=== PATIENT | male | born 1955 | race African-American/Black ===

== ENCOUNTER 2016-11-02 12:49 | Inpatient (IN) | payer MEDICARE ==
[~2016-11-02 12:49] MED LIST: ROCURONIUM BROMIDE INJ 50 MG/5 ML VIAL IV ONE
[2016-11-02] MEDS ORDERED: CEFTRIAXONE 1 GM/D5W RTU 1 GM/50 ML RTUPB IV ONE (15:00)
--- NOTE | 2016-11-02 15:08 | RADIOLOGY REPORT (SQ) ---
EXAM DESCRIPTION: CT ABD/PELVIS NO ORAL OR IV COMPLETED DATE/TIME: 11/02/2016 2:37 pm REASON FOR STUDY: ABDOMINAL PAIN COMPARISON: AP chest 04/21/2009, 11/02/2016 TECHNIQUE: CT scan of the abdomen and pelvis performed without intravenous or oral contrast. Images reviewed with lung, soft tissue, and bone windows. Reconstructed coronal and sagittal MPR images revi ewed. All images stored on PACS. All CT scanners at this facility use dose modulation, iterative reconstruction, and/or weight based d osing when appropriate to reduce radiation dose to as low as reasonably achievable (ALARA). [facility]: Dose Right [facility]: CareDose [facility]: Dose Right [facility]: Teradose 4D [facility]: [employer] RADIATION DOSE: Up-to-date CT equipment and radiation dose reduction techniques were employed. CTDIv ol: 31.7 mGy. DLP: 1960 mGy-cm.mGy. LIMITATIONS: None. FINDINGS: LOWER CHEST: On image 7 in the left posterior costophrenic sulcus, a 3.3 cm pleural-based ill-defined nodule with air bronchograms is present, which may represent round atelectasis. There is a 3.6 cm area of nodule versus consolidation in the right posterior costophrenic sulcus on A xial image 12. There is a 1 cm focus of airspace disease in the periphery of the right middle lobe axial image 2. No pleural effusions at the lung bases. Moderate cardiomegaly. Coronary artery calcification. Smal l hiatal hernia. NON-CONTRASTED LIVER, SPLEEN, ADRENALS: Liver, spleen, right adrenal gland are unremarkable. A 2.8 c m fatty density left adrenal nodule is present, benign. This best shown on axial image 32 and leung l image 73. PANCREAS: No masses. No peripancreatic inflammatory changes. GALLBLADDER: No identified stones by CT criteria. No inflammatory changes to suggest cholecystitis. RIGHT KIDNEY AND URETER: No suspicious masses. Assessment limited by lack of IV contrast. No signif icant calcifications. No hydronephrosis or hydroureter. LEFT KIDNEY AND URETER: No suspicious masses. Assessment limited by lack of IV contrast. No signifi cant calcifications. No hydronephrosis or hydroureter. AORTA AND RETROPERITONEUM: No aneurysm. No retroperitoneal masses or adenopathy. BOWEL AND PERITONEAL CAVITY: No obvious masses or inflammatory changes. No free fluid. APPENDIX: Normal. PELVIS, BLADDER, AND ABDOMINAL WALL:No abnormal masses. No free fluid. Bladder normal. Small fat con taining umbilical hernia. BONES: Diffuse degenerative disc changes most pronounced in the lower lumbar spine OTHER: No other significant finding. IMPRESSION: No CT findings to explain history of abdominal pain Incidental finding of a benign left adrenal adenoma Incidental finding of bilateral lower lobe pleural-based areas consolidation most likely rounded atel ectasis. Malignancy could not entirely be excluded. Please consider a non contrasted CT chest for f urther evaluation TECHNICAL DOCUMENTATION: JOB ID: [id number] Quality ID # [id number]: Final reports with documentation of one or more dose reduction techniques (e.g., Au tomated exposure control, adjustment of the mA and/or kV according to patient size, use of iterative reconstruction technique) 2010 [employer]- All Rights Reserved
--- NOTE | 2016-11-02 15:10 | RADIOLOGY REPORT (SQ) ---
EXAM DESCRIPTION: CHEST SINGLE VIEW COMPLETED DATE/TIME: 11/02/2016 2:47 pm REASON FOR STUDY: rule out pain COMPARISON: 08/16/2012 EXAM PARAMETERS: NUMBER OF VIEWS: One view. TECHNIQUE: Single frontal radiographic view of the chest acquired. RADIATION DOSE: NA LIMITATIONS: Obese patient, low lung volumes with portable technique. FINDINGS: LUNGS AND PLEURA: Low lung volumes, portable technique. There is right and left retrocard iac airspace disease, new compared to 2013. This could be chronic atelectasis. Pneumonia or pulmona ry nodule could not entirely be excluded. Consider non contrasted chest CT for followup. MEDIASTINUM AND HILAR STRUCTURES: No masses. Contour normal. HEART AND VASCULAR STRUCTURES: Heart normal in size. Normal vasculature. BONES: No acute findings. HARDWARE: None in the chest. OTHER: No other significant finding. IMPRESSION: Bibasilar airspace disease TECHNICAL DOCUMENTATION: JOB ID: [id number]
[2016-11-02 15:46] LABS: HEMATOCRIT 30.1 % (37.9-51.0); HEMOGLOBIN 9.5 g/dL (13.5-17.0); HGB HCT DIFFERENCE -1.6; MEAN CORPUSCULAR HEMOGLOBIN 30.7 pg (27.0-33.4); MEAN CORPUSCULAR HGB CONC 31.7 g/dL (32.0-36.0); MEAN CORPUSCULAR VOLUME 97 fl (80-97); RED BLOOD COUNT 3.11 10^6/uL (4.35-5.55); RED CELL DISTRIBUTION WIDTH 13.9 % (11.5-14.0); WHITE BLOOD COUNT 19.9 10^3/uL (4.0-10.5)
[2016-11-02 15:57] LABS: ALANINE AMINOTRANSFERASE 49 U/L (21-72); ALBUMIN 3.5 g/dL (3.5-5.0); ALKALINE PHOSPHATASE 74 U/L (38-126); ASPARTATE AMINO TRANSFERASE 55 U/L (17-59); BILIRUBIN,DIRECT 0.6 mg/dL (0.0-0.4); BILIRUBIN,TOTAL 0.6 mg/dL (0.2-1.3); BLOOD UREA NITROGEN 76 mg/dL (7-20); CALCIUM 7.7 mg/dL (8.4-10.2); CARBON DIOXIDE 16 mmol/L (22-30); CHLORIDE 93 mmol/L (98-107); CREATININE RESULT 10.87 mg/dL (0.52-1.25)
[2016-11-02 16:07] LABS: BASOPHILS % (MANUAL) 0 % (0-2); EOSINOPHILS % (MANUAL) 0 % (0-6); LYMPHOCYTES % (MANUAL) 4 % (13-45); SODIUM 129.8 mmol/L (137-145); TOTAL CELLS COUNTED 100
[2016-11-02 16:08] LABS: ANION GAP 21 (5-19)
[2016-11-02 16:10] LABS: TOXIC GRANULATION SLIGHT
[2016-11-02 16:11] LABS: GLUCOSE 722 mg/dL (75-110)
[2016-11-02 16:12] LABS: POTASSIUM 6.3 mmol/L (3.6-5.0)
[2016-11-02] MEDS ORDERED: INSULIN LISPRO 100 UNIT/ML 3 ML VIAL ONE (16:48)
[2016-11-02] MEDS ORDERED: LIDOCAINE 1% INJ-PF (10 MG/ML) 30 ML SDV ONE (16:49)
[2016-11-02] MEDS ORDERED: INSULIN LISPRO 100 UNIT/ML 3 ML VIAL SUBCUT ONE (17:00)
[2016-11-02] MEDS: SODIUM POLYSTYRENE SULFONATE 15 GM/60 ML PO SCH ×2 (18:34→21:18)
--- NOTE | 2016-11-02 18:34 | RADIOLOGY REPORT (SQ) ---
EXAM DESCRIPTION: CHEST SINGLE VIEW COMPLETED DATE/TIME: 11/02/2016 6:20 pm REASON FOR STUDY: CHECK PLACEMENT OF RIGHT IJ COMPARISON: 11/02/2016 EXAM PARAMETERS: NUMBER OF VIEWS: One view. TECHNIQUE: Single frontal radiographic view of the chest acquired. RADIATION DOSE: NA LIMITATIONS: None. FINDINGS: LUNGS AND PLEURA: There is ill-defined opacification in the left base. The left hemidiaph ragm is indistinct. There is no pneumothorax. MEDIASTINUM AND HILAR STRUCTURES: No masses. Contour normal. HEART AND VASCULAR STRUCTURES: Heart normal in size. Normal vasculature. BONES: No acute findings. HARDWARE: A right internal jugular catheter has its tip in the superior vena cava. OTHER: No other significant finding. IMPRESSION: 1. Cannot rule out left lower lobe pneumonia. 2. Catheter placement as described. TECHNICAL DOCUMENTATION: JOB ID: [id number]
--- NOTE | 2016-11-02 18:43 | RADIOLOGY REPORT (SQ) ---
EXAM DESCRIPTION: CT CHEST WITHOUT COMPLETED DATE/TIME: 11/02/2016 6:23 pm REASON FOR STUDY: pneumonia COMPARISON: None. TECHNIQUE: CT scan performed of the chest without intravenous contrast. Images reviewed with lung, soft tissue and bone windows. Reconstructed coronal and sagittal MPR images reviewed. All images st ored on PACS. All CT scanners at this facility use dose modulation, iterative reconstruction, and/or weight based d osing when appropriate to reduce radiation dose to as low as reasonably achievable (ALARA). [facility]: Dose Right [facility]: CareDose [facility]: Dose Right [facility]: Teradose 4D [facility]: [employer] RADIATION DOSE: 21.14 mGy. LIMITATIONS: No technical limitations. FINDINGS: LUNGS AND PLEURA: There is a 30 x 20 mm opacity in the right upper lobe anteriorly. This is best seen on image 16 of the axial series. This abuts the pleural surface on image 15. There is a 9 mm nodular density seen peripherally the right lung on image 27. There are bilateral focal areas of opacity in the medial aspect of each lung base. There is mild subsegmental atelectasis in each lo wer lobe. HILAR AND MEDIASTINAL STRUCTURES: No mediastinal or hilar masses or adenopathy is seen. HEART AND VASCULAR STRUCTURES: No aneurysm. No pericardial effusion. UPPER ABDOMEN: There is a 33 mm left adrenal nodule. THYROID AND OTHER SOFT TISSUES: No masses. No adenopathy. BONES: No significant finding. HARDWARE: None in the chest. OTHER: No other significant findings. IMPRESSION: 1. There is opacity in the right upper lobe. This could represent a localized area of consolidation. A nodule cannot be ruled out. 2. There are opacities in the medial aspect of each lower lobe suggestive of areas of consolidation. 3. There is a 33 mm left adrenal nodule. 4. There is peripheral 9 mm nodule in the right lung on image 27. TECHNICAL DOCUMENTATION: JOB ID: [id number] Quality ID # [id number]: Final reports with documentation of one or more dose reduction techniques (e.g., Au tomated exposure control, adjustment of the mA and/or kV according to patient size, use of iterative reconstruction technique) 2010 [employer]- All Rights Reserved
--- NOTE | 2016-11-02 19:29 | OPERATIVE REPORT E ---
Operative Report NAME: SCARLET ALMONTE : 1955 AGE: 61Y DATE OF SURGERY: ROOM: 324 PREOPERATIVE DIAGNOSIS: POOR VEINS FOR IV ACCESS AND PATIENT WITH SEPSIS AND HEMODIALYSIS PATIENT. POSTOPERATIVE DIAGNOSIS: POOR VEINS FOR IV ACCESS AND PATIENT WITH SEPSIS AND HEMODIALYSIS PATIENT. OPERATION: Placement of right internal jugular vein catheter under ultrasound guidance. SURGEON: LUIS ANGEL MCKEON M.D. ANESTHESIA: Local. INDICATION: This is a 61-year-old male who was admitted from the medical office for sepsis. He needed IV access and unable to put in peripheral lines because of poor veins in his arms. PROCEDURE: The patient was placed in the Trendelenburg position. The right neck was then prepped and draped in the usual sterile fashion. With the help of the ultrasound, the right internal jugular vein was identified. It was noted to be a good size, about almost 2 cm in diameter. Local anesthesia was then infiltrated and a needle was advanced through the skin into the internal jugular vein. The guidewire was then passed through the needle towards the area of the superior vena cava. The needle was removed and the puncture site enlarged with an 11-blade and with a dilator. Next, a triple lumen catheter was then inserted through the guidewire towards the superior vena cava to a distance of about 16 cm. The catheter was anchored to the skin with 3-0 silk. All the 3 ports spurted blood easily and infused saline easily. A bypass was then placed at the insertion site around the catheter and a transparent sterile dressing placed over the Biopatch and catheter. A chest x-ray will be taken post catheter placement. He is supposed to go to CAT scan and they can do the chest x-ray in the x-ray department at the same time. The patient tolerated the procedure well. DICTATING PHYSICIAN: LUIS ANGEL MCKEON M.D. [id number] PHY#: [id number] ID: [id number] JOB#: [id number] ACCT: [id number] cc:LUIS ANGEL MCKEON M.D. > MTDD
[2016-11-02] MEDS ORDERED: CALCIUM ACETATE 667 MG CAPSULE PO SCH (19:30)
[2016-11-02] MEDS ORDERED: (PENDING PHARMACY ID) (Vit B Cmplx 3/Fa/Vit C/Biotin [Rena-Vite Rx Tablet] 1 TAB) PO SCH (19:30)
[2016-11-02] MEDS: HYDROCODONE/ACETAMINOPHEN 5-325 MG TABLET PO PRN (20:05)
[2016-11-02] MEDS ORDERED: MAGNESIUM OXIDE 400 MG TABLET PO ONE (20:15)
[2016-11-02] MEDS ORDERED: ASPIRIN 81 MG TABLET, CHEWABLE PO ONE (20:30)
--- NOTE | 2016-11-02 20:30 | PDOC H&P ---
History of Present Illness Admission Date/PCP: 11/02/16 19:22 ALEA MCGRATH MD History of Present Illness: SCARLET ALMONTE JR is a 61 year old male, he was end-stage renal disease due to diabetic nephropathy on maintenance hemodialysis he came to the office this morning for evaluation of the temperature 102 upper abdominal pain, he was admitted directly from the office into the hospital because of concern for sepsis, the hemogram revealed WBC of 19,000 with left shift ,CT Chest without contrast was done, showed 30 by 20 mm opacity in the right upper lobe. There are bilateral focal opacity in the medial aspect of each lung base, CT scan of the abdomen was done because of abdominal pain, the CAT scan did not show any acute pathology. 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12 , Vascular Surgery - fistula Denies: Appendectomy, Cholecystectomy, Coronary Artery Bypass Graft, Gastric Bypass Surgery, Herniorrhaphy, Pacemaker, Tonsillectomy Social History Smoking Status: Never Smoker Frequency of Alcohol Use: None Hx Recreational Drug Use: No Drugs: None Hx Prescription Drug Abuse: No Family History Parental Family History Reviewed: Yes Children Family History Reviewed: Yes Sibling(s) Family History Reviewed.: Yes Medication/Allergy Home Medications: Aspirin [Aspirin 81 mg Chewable Tablet] 81 mg PO DAILY 11/02/16 Calcium Acetate 2,001 mg PO MEALS 11/02/16 Calcium Acetate 667 mg PO .WITH SNACKS 11/02/16 Calcium Carbonate [Tums Chewable 500 mg Tab.chew] 500 mg PO QHS 11/02/16 Clonidine HCl [Catapres 0.1 mg Tablet] 0.1 mg PO QHS 11/02/16 Furosemide [Lasix 80 mg Tablet] 80 mg PO SUTUTHSA@1000 11/02/16 Furosemide [Lasix] 40 mg PO MOWEFR@1000 11/02/16 Insulin Glargine,Hum.rec.anlog [Lantus Solostar] 18 unit SQ QHS 11/02/16 Insulin Lispro [Humalog Insulin 100 Unit/1 ml 3 ml Vial] 0 unit SUBCUT .SLD SCALE 11/02/16 Magnesium Oxide [Mag-Ox 400 mg Tablet] 400 mg PO DAILY 11/02/16 Pravastatin Sodium [Pravachol] 40 mg PO DAILY 11/02/16 Vit B Cmplx 3/FA/Vit C/Biotin [Nisha-John Rx Tablet] 1 tab PO DAILY 11/02/16 Allergies/Adverse Reactions: No Known Allergies Allergy (Unverified 10/24/10 17:46) Review of Systems Constitutional: PRESENT: chills Eyes: ABSENT: visual disturbances Ears: ABSENT: hearing changes Cardiovascular: ABSENT: chest pain, dyspnea on exertion, edema, orthropnea, palpitations Respiratory: PRESENT: cough Gastrointestinal: PRESENT: abdominal pain Genitourinary: ABSENT: dysuria, hematuria Musculoskeletal: ABSENT: joint swelling Integumentary: ABSENT: rash, wounds Neurological: ABSENT: abnormal gait, abnormal speech, confusion, dizziness, focal weakness, syncope Psychiatric: ABSENT: anxiety, depression, homidical ideation, suicidal ideation Endocrine: ABSENT: cold intolerance, heat intolerance, menstrual abnormalities, polydipsia, polyuria Hematologic/Lymphatic: ABSENT: easy bleeding, easy bruising, lymphadenopathy Physical Exam Vital Signs: Temp Pulse Resp BP Pulse Ox 98.6 F 87 24 H 152/67 H 93 11/02/16 16:01 11/02/16 19:20 11/02/16 16:01 11/02/16 16:01 11/02/16 16:01 Intake & Output 11/01/16 11/02/16 11/03/16 06:59 06:59 06:59 Intake Total 289 Output Total 0 Balance 289 Weight 149.3 kg General appearance: PRESENT: severe distress Head exam: PRESENT: atraumatic, normocephalic Eye exam: PRESENT: conjunctiva pink, EOMI, PERRLA. ABSENT: scleral icterus Ear exam: PRESENT: normal external ear exam Mouth exam: PRESENT: moist, tongue midline Neck exam: PRESENT: full ROM Cardiovascular exam: PRESENT: RRR, +S1, +S2 Vascular exam: PRESENT: normal capillary refill GI/Abdominal exam: PRESENT: normal bowel sounds, soft Rectal exam: PRESENT: deferred Extremities exam: PRESENT: right AKA, left BKA Neurological exam: PRESENT: alert Psychiatric exam: PRESENT: appropriate affect, normal mood Skin exam: PRESENT: dry, intact, warm Results Laboratory Results: 11/02/16 15:25 11/02/16 15:25 11/02/16 11/02/16 15:25 15:25 WBC 19.9 H RBC 3.11 L Hgb 9.5 L Hct 30.1 L MCV 97 MCH 30.7 MCHC 31.7 L RDW 13.9 Plt Count 191 Seg Neutrophils % Not Reportable Lymphocytes % Not Reportable Monocytes % Not Reportable Eosinophils % Not Reportable Basophils % Not Reportable Absolute Neutrophils Not Reportable Absolute Lymphocytes Not Reportable Absolute Monocytes Not Reportable Absolute Eosinophils Not Reportable Absolute Basophils Not Reportable Sodium 129.8 L Potassium 6.3 H* Chloride 93 L Carbon Dioxide 16 L Anion Gap 21 H BUN 76 H Creatinine 10.87 H Est GFR ( Amer) 6 L Est GFR (Non-Af Amer) 5 L Glucose 722 H* Calcium 7.7 L Total Bilirubin 0.6 AST 55 ALT 49 Alkaline Phosphatase 74 Total Protein 7.0 Albumin 3.5 Impressions: Abdomen/Pelvis CT 11/02/16 00:00 IMPRESSION: No CT findings to explain history of abdominal pain Incidental finding of a benign left adrenal adenoma Incidental finding of bilateral lower lobe pleural-based areas consolidation most likely rounded atelectasis. Malignancy could not entirely be excluded. Please consider a non contrasted CT chest for further evaluation Chest CT 11/02/16 00:00 IMPRESSION: 1. There is opacity in the right upper lobe. This could represent a localized area of consolidation. A nodule cannot be ruled out. 2. There are opacities in the medial aspect of each lower lobe suggestive of areas of consolidation. 3. There is a 33 mm left adrenal nodule. 4. There is peripheral 9 mm nodule in the right lung on image 27. Chest X-Ray 11/02/16 00:00 IMPRESSION: 1. Cannot rule out left lower lobe pneumonia. 2. Catheter placement as described. Assessment & Plan - Diagnosis (1) Pneumonia Qualifiers: Pneumonia type: due to unspecified organism Laterality: bilateral Lung location: unspecified part of lung Qualified Code(s): J18.9 - Pneumonia, unspecified organism Is this a current diagnosis for this admission?: YesPlan: He will be treated with IV antibiotic to cover MRSA, gram-negative, community- acquired pathogen. Vancomycin, Levaquin,ceftrizone (2) Sepsis Qualifiers: Sepsis type: sepsis due to unspecified organism Qualified Code(s): A41.9 - Sepsis, unspecified organism Is this a current diagnosis for this admission?: Yes (4) Diabetes mellitus Qualifiers: Diabetes mellitus type: type 2 Diabetes mellitus complication status: with hyperglycemia Diabetes mellitus penitentiary insulin use: with continuous churn buttermaker use Qualified Code(s): E11.65 - Type 2 diabetes mellitus with hyperglycemia; Z79.4 - intermodal truck driver (current) use of insulin Is this a current diagnosis for this admission?: YesPlan: The blood glucose is above 700 (5) Hyperkalemia Is this a current diagnosis for this admission?: YesPlan: start kayexalate
[2016-11-02] MEDS ORDERED: VANCOMYCIN HCL 1,000 MG in DEXTROSE 5%-WATER 250 ML IV ONE (21:00)
[2016-11-02] MEDS: CALCIUM CARBONATE 500 MG TAB.CHEW PO SCH (21:17)
[2016-11-02] MEDS: CLONIDINE HCL 0.1 MG TABLET PO SCH (21:17)
[2016-11-02] MEDS: ATORVASTATIN CALCIUM 10 MG TABLET PO SCH (21:17)
[2016-11-02 21:54] LABS: ANION GAP 19 (5-19); BLOOD UREA NITROGEN 80 mg/dL (7-20); CALCIUM 7.7 mg/dL (8.4-10.2); CARBON DIOXIDE 20 mmol/L (22-30); CHLORIDE 92 mmol/L (98-107); CREATININE RESULT 10.81 mg/dL (0.52-1.25); SODIUM 130.9 mmol/L (137-145)
[2016-11-02 22:12] LABS: GLUCOSE 738 mg/dL (75-110); POTASSIUM 6.2 mmol/L (3.6-5.0)
--- NOTE | 2016-11-02 22:26 | EKG REPORT ---
SEVERITY:- NORMAL ECG - SINUS RHYTHM : Confirmed by: Heather Madrid 02-Nov-2016 22:25:25
[2016-11-02] MEDS ORDERED: INSULIN REG, HUMAN 100 UNIT/ML 3 ML VIAL (PYX) IV ONE (23:30)
[2016-11-03] MEDS: INSULIN GLARGINE,HUM.REC.ANLOG 300 UNIT/3 ML INSULN.PEN SUBCUT SCH ×2 (00:01→22:44)
[2016-11-03] MEDS: LEVOFLOXACIN 250 MG/D5W RTU 250 MG/50 ML RTUPB IV SCH ×2 (00:02→22:53)
[2016-11-03] MEDS: HYDROCODONE/ACETAMINOPHEN 5-325 MG TABLET PO PRN ×5 (00:10→17:55)
[2016-11-03] MEDS: SODIUM POLYSTYRENE SULFONATE 15 GM/60 ML PO SCH (03:34)
[2016-11-03 06:12] LABS: HEMATOCRIT 31.7 % (37.9-51.0); HGB HCT DIFFERENCE -1.7; MEAN CORPUSCULAR HEMOGLOBIN 30.7 pg (27.0-33.4); MEAN CORPUSCULAR HGB CONC 31.4 g/dL (32.0-36.0); MEAN CORPUSCULAR VOLUME 98 fl (80-97); RED BLOOD COUNT 3.24 10^6/uL (4.35-5.55); RED CELL DISTRIBUTION WIDTH 14.2 % (11.5-14.0); WHITE BLOOD COUNT 15.6 10^3/uL (4.0-10.5)
[2016-11-03 06:51] LABS: ANISOCYTOSIS SLIGHT; BAND NEUTROPHILS % (MANUAL) 10 % (3-5); BASOPHILS % (MANUAL) 0 % (0-2); BURR CELLS SLIGHT; EOSINOPHILS % (MANUAL) 0 % (0-6); LYMPHOCYTES % (MANUAL) 13 % (13-45); POLYCHROMASIA SLIGHT; TEAR DROP CELLS SLIGHT; TOTAL CELLS COUNTED 100; TOXIC GRANULATION 1+
[2016-11-03 07:26] LABS: ALANINE AMINOTRANSFERASE 51 U/L (21-72); ALBUMIN 3.3 g/dL (3.5-5.0); ALKALINE PHOSPHATASE 69 U/L (38-126); ASPARTATE AMINO TRANSFERASE 58 U/L (17-59); BILIRUBIN,DIRECT 0.6 mg/dL (0.0-0.4); BILIRUBIN,TOTAL 0.6 mg/dL (0.2-1.3); BLOOD UREA NITROGEN 85 mg/dL (7-20); CALCIUM 8.1 mg/dL (8.4-10.2); CREATININE RESULT 12.16 mg/dL (0.52-1.25); TOTAL PROTEIN 6.6 g/dL (6.3-8.2)
[2016-11-03 07:53] LABS: CARBON DIOXIDE 13 mmol/L (22-30); CHLORIDE 95 mmol/L (98-107); SODIUM 137.2 mmol/L (137-145)
[2016-11-03 08:08] LABS: ANION GAP 29 (5-19); GLUCOSE 640 mg/dL (75-110); POTASSIUM 4.7 mmol/L (3.6-5.0)
[2016-11-03] MEDS ORDERED: INSULIN LISPRO 100 UNIT/ML 3 ML VIAL ONE (08:08)
[2016-11-03] MEDS: ASPIRIN 81 MG TABLET, CHEWABLE PO SCH (08:11)
[2016-11-03] MEDS: MAGNESIUM OXIDE 400 MG TABLET PO SCH (08:11)
[2016-11-03] MEDS: CALCIUM ACETATE 667 MG CAPSULE PO SCH ×3 (08:12→18:02)
[2016-11-03] MEDS ORDERED: GLUCAGON,HUMAN RECOMB 1 MG INJ IM PRN (08:15)
[2016-11-03] MEDS ORDERED: DEXTROSE 50%-WATER SYRINGE 25 GM/50 ML DOSE IV PRN (08:15)
[2016-11-03] MEDS ORDERED: DEXTROSE 40% GEL 15 GM TUBE X 2 PO PRN (08:15)
[2016-11-03] MEDS ORDERED: DEXTROSE 50%-WATER SYRINGE 12.5 GM/25 ML DOSE IV PRN (08:15)
[2016-11-03] MEDS ORDERED: DEXTROSE 40% GEL 15 GM TUBE PO PRN (08:15)
[2016-11-03] MEDS ORDERED: FUROSEMIDE 40 MG TABLET PO SCH (10:00)
[2016-11-03] MEDS: INSULIN LISPRO 100 UNIT/ML 3 ML VIAL SUBCUT PRN ×3 (13:25→22:46)
[2016-11-03] MEDS ORDERED: NORMAL SALINE 1000 ML 1,000 ML IV PRN (13:41)
--- NOTE | 2016-11-03 17:00 | PDOC CONSULTATION ---
Consultation Consult Date: 11/03/16 Consult reason:: Hemodialysis History of Present Illness Admission Date/PCP: 11/02/16 19:22 ALEA MCGRATH MD History of Present Illness: SCARLET ALMONTE JR is a 61 year old male, With a history of diabetes mellitus hypertension, peripheral vascular disease, end-stage renal disease due to diabetic nephropathy on maintenance hemodialysis Was admitted for evaluation of chest pain, shortness of breath and fever. He has been diagnosed to have pneumonia on CT scan of the chest. He has been begun on antibiotics. CT Chest without contrast was done, showed 30 by 20 mm opacity in the right upper lobe. There are bilateral focal opacity in the medial aspect of each lung base, CT scan of the abdomen was done because of abdominal pain, but was negative. Blood sugars have been high and he has had acidosis suggestive of possible diabetic ketoacidosis and is being managed by Dr. Mcgrath.His potassium was also found to be high and was treated last night and earlier today with Kayexalate. He has been having runs since then. On the whole he feels better today with chest pains though pleuritic and dyspnea is better.He was put on dialysis but could not stay comfortable after approximately an hour because of his position and because of diarrhea and therefore dialysis had to be terminated. Past Medical History Cardiac Medical History: Reports: Hypertension-primary Denies: Coronary Artery Disease, Myocardial Infarction Pulmonary Medical History: Denies: Asthma, Bronchitis, Chronic Obstructive Pulmonary Disease (COPD), Pneumonia, Tuberculosis Neurological Medical History: Denies: Seizures Endocrine Medical History: Reports: Diabetes Mellitus Type 2, Obesity Denies: Hyperthyroidism, Hypothyroidism Complications of Diabetes: Reports: Other - Peripheral vascular disease with status post bilateral amputation Renal/ Medical History: Reports: End Stage Renal Disease Denies: Benign Prostatic Hyperplasia GI Medical History: Denies: Hepatitis, Hiatal Hernia Musculoskeltal Medical History: Reports: Arthritis Denies: Systemic Lupus Erythematosus Hematology Medical History: Reports Anemia of Chronic Kidney Disease Past Surgical History Past Surgical History: Reports: Orthopedic Surgery - 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12 , Vascular Surgery - fistula Denies: Appendectomy, Cholecystectomy, Coronary Artery Bypass Graft, Gastric Bypass Surgery, Herniorrhaphy, Pacemaker, Tonsillectomy Social History Smoking Status: Never Smoker Frequency of Alcohol Use: None Hx Recreational Drug Use: No Drugs: None Hx Prescription Drug Abuse: No Family History Parental Family History Reviewed: Yes - Negative for ESRD Children Family History Reviewed: No Sibling(s) Family History Reviewed.: No Medication/Allergy Home Medications: Aspirin [Aspirin 81 mg Chewable Tablet] 81 mg PO DAILY 11/02/16 Calcium Acetate 2,001 mg PO MEALS 11/02/16 Calcium Acetate 667 mg PO .WITH SNACKS 11/02/16 Calcium Carbonate [Tums Chewable 500 mg Tab.chew] 500 mg PO QHS 11/02/16 Clonidine HCl [Catapres 0.1 mg Tablet] 0.1 mg PO QHS 11/02/16 Furosemide [Lasix 80 mg Tablet] 80 mg PO SUTUTHSA@1000 11/02/16 Furosemide [Lasix] 40 mg PO MOWEFR@1000 11/02/16 Insulin Glargine,Hum.rec.anlog [Lantus Solostar] 18 unit SQ QHS 11/02/16 Insulin Lispro [Humalog Insulin 100 Unit/1 ml 3 ml Vial] 0 unit SUBCUT .SLD SCALE 11/02/16 Magnesium Oxide [Mag-Ox 400 mg Tablet] 400 mg PO DAILY 11/02/16 Pravastatin Sodium [Pravachol] 40 mg PO DAILY 11/02/16 Vit B Cmplx 3/FA/Vit C/Biotin [Nisha-John Rx Tablet] 1 tab PO DAILY 11/02/16 Allergies/Adverse Reactions: No Known Allergies Allergy (Unverified 10/24/10 17:46) Review of Systems Constitutional: PRESENT: fatigue, weakness. ABSENT: fever(s), headache(s), night sweats Nose, Mouth, and Throat: ABSENT: mouth pain, sore throat Cardiovascular: PRESENT: chest pain, dyspnea on exertion. ABSENT: edema, orthropnea, palpitations Gastrointestinal: PRESENT: abdominal pain, diarrhea - Post Kayexalate. ABSENT: bloating, coffee ground emesis, dysphagia, heartburn, hematemesis, hematochezia , melena, nausea Genitourinary: ABSENT: dysuria, hematuria Neurological: ABSENT: abnormal movements, abnormal speech, confusion, convulsions, focal weakness Endocrine: ABSENT: heat intolerance Hematologic/Lymphatic: ABSENT: easy bruising, lymphadenopathy Physical Exam Vital Signs: Temp Pulse Resp BP Pulse Ox 97.4 F 98 21 H 108/41 L 97 11/03/16 14:21 11/03/16 14:21 11/03/16 14:21 11/03/16 14:21 11/03/16 14:21 Intake & Output 11/02/16 11/03/16 11/04/16 06:59 06:59 06:59 Intake Total 1099 Output Total 0 0 Balance 1099 0 Weight 144.7 kg General appearance: PRESENT: mild distress Eye exam: PRESENT: EOMI, PERRLA. ABSENT: nystagmus, periorbital swelling, scleral icterus Ear exam: PRESENT: normal external ear exam Mouth exam: PRESENT: moist Neck exam: ABSENT: lymphadenopathy, meningismus, tenderness, thyromegaly, tracheal deviation Respiratory exam: PRESENT: clear to auscultation deborah. ABSENT: crackles - Left infra axillary region, rhonchi, wheezes Cardiovascular exam: PRESENT: +S1, +S2, systolic murmur GI/Abdominal exam: PRESENT: normal bowel sounds, soft. ABSENT: diminished bowel sounds, distended, firm, guarding, organomegaly, tenderness Extremities exam: ABSENT: pedal edema - Bilateral amputee. Neurological exam: PRESENT: awake - Looks sick and moribund the moment., oriented to person, oriented to place, oriented to time Psychiatric exam: PRESENT: flat affect. ABSENT: anxious Skin exam: ABSENT: cyanosis, erythema, mottled, rash Results Laboratory Results: 11/03/16 05:15 11/03/16 05:15 11/02/16 11/03/16 11/03/16 21:15 05:15 05:15 WBC 15.6 H RBC 3.24 L Hgb 10.0 L Hct 31.7 L MCV 98 H MCH 30.7 MCHC 31.4 L RDW 14.2 H Plt Count 202 Seg Neutrophils % Not Reportable Lymphocytes % Not Reportable Monocytes % Not Reportable Eosinophils % Not Reportable Basophils % Not Reportable Absolute Neutrophils Not Reportable Absolute Lymphocytes Not Reportable Absolute Monocytes Not Reportable Absolute Eosinophils Not Reportable Absolute Basophils Not Reportable Sodium 130.9 L 137.2 Potassium 6.2 H* 4.7 D Chloride 92 L 95 L Carbon Dioxide 20 L 13 L Anion Gap 19 29 H BUN 80 H 85 H Creatinine 10.81 H 12.16 H Est GFR ( Amer) 6 L 5 L Est GFR (Non-Af Amer) 5 L 4 L Glucose 738 H* 640 H* Calcium 7.7 L 8.1 L Total Bilirubin 0.6 AST 58 ALT 51 Alkaline Phosphatase 69 Total Protein 6.6 Albumin 3.3 L Impressions: Abdomen/Pelvis CT 11/02/16 00:00 IMPRESSION: No CT findings to explain history of abdominal pain Incidental finding of a benign left adrenal adenoma Incidental finding of bilateral lower lobe pleural-based areas consolidation most likely rounded atelectasis. Malignancy could not entirely be excluded. Please consider a non contrasted CT chest for further evaluation Chest CT 11/02/16 00:00 IMPRESSION: 1. There is opacity in the right upper lobe. This could represent a localized area of consolidation. A nodule cannot be ruled out. 2. There are opacities in the medial aspect of each lower lobe suggestive of areas of consolidation. 3. There is a 33 mm left adrenal nodule. 4. There is peripheral 9 mm nodule in the right lung on image 27. Chest X-Ray 11/02/16 00:00 IMPRESSION: 1. Cannot rule out left lower lobe pneumonia. 2. Catheter placement as described. Assessment & Plan - Diagnosis (1) Hypertension Plan: Relatively stable. monitor. (2) Diabetes mellitus Qualifiers: Diabetes mellitus type: type 2 Diabetes mellitus complication status: with hyperglycemia Diabetes mellitus prison insulin use: with terminal press operator use Qualified Code(s): E11.65 - Type 2 diabetes mellitus with hyperglycemia; Z79.4 - alf (current) use of insulin Is this a current diagnosis for this admission?: YesPlan: Uncontrolled. Likely ketoacidosis as per labs. Management by Dr. Mcgrath. (4) Hyperkalemia Is this a current diagnosis for this admission?: YesPlan: Was being treated earlier with Kayexalate which I would discontinue. He had a short dialysis which hopefully should do the trick. Monitor. Advised proper diet. Next dialysis due for Sunday. (5) Pneumonia Qualifiers: Pneumonia type: due to unspecified organism Laterality: bilateral Lung location: unspecified part of lung Qualified Code(s): J18.9 - Pneumonia, unspecified organism Is this a current diagnosis for this admission?: YesPlan: On IV antibiotics with slow improvement. As per Dr. Mcgrath (6) Sepsis Qualifiers: Sepsis type: sepsis due to unspecified organism Qualified Code(s): A41.9 - Sepsis, unspecified organism Is this a current diagnosis for this admission?: YesPlan: From pneumonia on antibiotics. (7) Diabetic keto-acidosis Plan: Would leave diagnoses and management to Dr. Mcgrath. Discussed with treating nurse Bridget.
[2016-11-03] MEDS ORDERED: VANCOMYCIN HCL 1,000 MG in DEXTROSE 5%-WATER 250 ML IV SCH (18:00)
[2016-11-03] MEDS ORDERED: CEFTRIAXONE 1 GM/D5W RTU 1 GM/50 ML RTUPB IV SCH (18:00)
[2016-11-03] MEDS ORDERED: VANCOMYCIN HCL 750 MG in DEXTROSE 5%-WATER 250 ML IV SCH (18:00)
--- NOTE | 2016-11-03 20:10 | PDOC PROGRESS REPORT ---
Subjective Progress Note for:: 11/03/16 Subjective:: He was admitted yesterday, because of pneumonia with sepsis, he did not complete hemodialysis today because it was uncomfortable with diarrhea an the dialysis session was stopped .I saw him by the bedside he said he feels better but it seems that he is tachypneic. Physical Exam Vital Signs: Temp Pulse Resp BP Pulse Ox 97.8 F 100 24 H 99/54 L 97 11/03/16 16:46 11/03/16 16:46 11/03/16 16:46 11/03/16 16:46 11/03/16 16:46 Intake & Output 11/02/16 11/03/16 11/04/16 06:59 06:59 06:59 Intake Total 1099 812 Output Total 0 0 Balance 1099 812 Weight 144.7 kg General appearance: PRESENT: mild distress Eye exam: PRESENT: PERRLA Respiratory exam: PRESENT: rhonchi Cardiovascular exam: PRESENT: +S1, +S2 GI/Abdominal exam: PRESENT: soft Neurological exam: PRESENT: alert Results Laboratory Results: 11/03/16 05:15 11/03/16 05:15 11/02/16 11/03/16 11/03/16 21:15 05:15 05:15 WBC 15.6 H RBC 3.24 L Hgb 10.0 L Hct 31.7 L MCV 98 H MCH 30.7 MCHC 31.4 L RDW 14.2 H Plt Count 202 Seg Neutrophils % Not Reportable Lymphocytes % Not Reportable Monocytes % Not Reportable Eosinophils % Not Reportable Basophils % Not Reportable Absolute Neutrophils Not Reportable Absolute Lymphocytes Not Reportable Absolute Monocytes Not Reportable Absolute Eosinophils Not Reportable Absolute Basophils Not Reportable Sodium 130.9 L 137.2 Potassium 6.2 H* 4.7 D Chloride 92 L 95 L Carbon Dioxide 20 L 13 L Anion Gap 19 29 H BUN 80 H 85 H Creatinine 10.81 H 12.16 H Est GFR ( Amer) 6 L 5 L Est GFR (Non-Af Amer) 5 L 4 L Glucose 738 H* 640 H* Calcium 7.7 L 8.1 L Total Bilirubin 0.6 AST 58 ALT 51 Alkaline Phosphatase 69 Total Protein 6.6 Albumin 3.3 L Impressions: Abdomen/Pelvis CT 11/02/16 00:00 IMPRESSION: No CT findings to explain history of abdominal pain Incidental finding of a benign left adrenal adenoma Incidental finding of bilateral lower lobe pleural-based areas consolidation most likely rounded atelectasis. Malignancy could not entirely be excluded. Please consider a non contrasted CT chest for further evaluation Chest CT 11/02/16 00:00 IMPRESSION: 1. There is opacity in the right upper lobe. This could represent a localized area of consolidation. A nodule cannot be ruled out. 2. There are opacities in the medial aspect of each lower lobe suggestive of areas of consolidation. 3. There is a 33 mm left adrenal nodule. 4. There is peripheral 9 mm nodule in the right lung on image 27. Chest X-Ray 11/02/16 00:00 IMPRESSION: 1. Cannot rule out left lower lobe pneumonia. 2. Catheter placement as described. Assessment & Plan - Diagnosis (1) Pneumonia Qualifiers: Pneumonia type: due to unspecified organism Laterality: bilateral Lung location: unspecified part of lung Qualified Code(s): J18.9 - Pneumonia, unspecified organism Is this a current diagnosis for this admission?: YesPlan: Continue IV antibiotic (2) Sepsis Qualifiers: Sepsis type: sepsis due to unspecified organism Qualified Code(s): A41.9 - Sepsis, unspecified organism Is this a current diagnosis for this admission?: Yes (3) End stage chronic kidney disease Is this a current diagnosis for this admission?: Yes (4) Diabetes mellitus Qualifiers: Diabetes mellitus type: type 2 Diabetes mellitus complication status: with hyperglycemia Diabetes mellitus fdc insulin use: with fdc use Qualified Code(s): E11.65 - Type 2 diabetes mellitus with hyperglycemia; Z79.4 - terminologist (current) use of insulin Is this a current diagnosis for this admission?: Yes (5) Hyperkalemia Is this a current diagnosis for this admission?: Yes
[2016-11-03 20:48] LABS: ARTERIAL BLOOD BASE EXCESS -1.7 mmol/L; ARTERIAL BLOOD O2 SATURATION 94.8 % (94-98)
--- NOTE | 2016-11-03 21:13 | PDOC PROGRESS REPORT ---
Subjective Progress Note for:: 11/03/16 Subjective:: Patient developed respiratory distress, ABG on 5 L showed PO2 of 71 suggesting severe hypoxemia, he will be transfer to ICU Physical Exam Vital Signs: Temp Pulse Resp BP Pulse Ox 97.8 F 100 24 H 99/54 L 97 11/03/16 16:46 11/03/16 16:46 11/03/16 16:46 11/03/16 16:46 11/03/16 16:46 Intake & Output 11/02/16 11/03/16 11/04/16 06:59 06:59 06:59 Intake Total 1099 812 Output Total 0 0 Balance 1099 812 Weight 144.7 kg General appearance: PRESENT: severe distress Eye exam: PRESENT: PERRLA Respiratory exam: PRESENT: rhonchi Cardiovascular exam: PRESENT: +S1, +S2 GI/Abdominal exam: PRESENT: soft Neurological exam: PRESENT: alert Results Laboratory Results: 11/03/16 05:15 11/03/16 05:15 11/02/16 11/03/16 11/03/16 21:15 05:15 05:15 WBC 15.6 H RBC 3.24 L Hgb 10.0 L Hct 31.7 L MCV 98 H MCH 30.7 MCHC 31.4 L RDW 14.2 H Plt Count 202 Seg Neutrophils % Not Reportable Lymphocytes % Not Reportable Monocytes % Not Reportable Eosinophils % Not Reportable Basophils % Not Reportable Absolute Neutrophils Not Reportable Absolute Lymphocytes Not Reportable Absolute Monocytes Not Reportable Absolute Eosinophils Not Reportable Absolute Basophils Not Reportable Carbonic Acid HCO3/H2CO3 Ratio ABG pH ABG pCO2 ABG pO2 ABG HCO3 ABG O2 Saturation ABG Base Excess FiO2 Sodium 130.9 L 137.2 Potassium 6.2 H* 4.7 D Chloride 92 L 95 L Carbon Dioxide 20 L 13 L Anion Gap 19 29 H BUN 80 H 85 H Creatinine 10.81 H 12.16 H Est GFR ( Amer) 6 L 5 L Est GFR (Non-Af Amer) 5 L 4 L Glucose 738 H* 640 H* Calcium 7.7 L 8.1 L Total Bilirubin 0.6 AST 58 ALT 51 Alkaline Phosphatase 69 Total Protein 6.6 Albumin 3.3 L 11/03/16 20:29 WBC RBC Hgb Hct MCV MCH MCHC RDW Plt Count Seg Neutrophils % Lymphocytes % Monocytes % Eosinophils % Basophils % Absolute Neutrophils Absolute Lymphocytes Absolute Monocytes Absolute Eosinophils Absolute Basophils Carbonic Acid 1.34 HCO3/H2CO3 Ratio 17:1 ABG pH 7.35 ABG pCO2 44.4 ABG pO2 77.5 L ABG HCO3 24.0 ABG O2 Saturation 94.8 ABG Base Excess -1.7 FiO2 5L Sodium Potassium Chloride Carbon Dioxide Anion Gap BUN Creatinine Est GFR ( Amer) Est GFR (Non-Af Amer) Glucose Calcium Total Bilirubin AST ALT Alkaline Phosphatase Total Protein Albumin Impressions: Abdomen/Pelvis CT 11/02/16 00:00 IMPRESSION: No CT findings to explain history of abdominal pain Incidental finding of a benign left adrenal adenoma Incidental finding of bilateral lower lobe pleural-based areas consolidation most likely rounded atelectasis. Malignancy could not entirely be excluded. Please consider a non contrasted CT chest for further evaluation Chest CT 11/02/16 00:00 IMPRESSION: 1. There is opacity in the right upper lobe. This could represent a localized area of consolidation. A nodule cannot be ruled out. 2. There are opacities in the medial aspect of each lower lobe suggestive of areas of consolidation. 3. There is a 33 mm left adrenal nodule. 4. There is peripheral 9 mm nodule in the right lung on image 27. Chest X-Ray 11/02/16 00:00 IMPRESSION: 1. Cannot rule out left lower lobe pneumonia. 2. Catheter placement as described. Assessment & Plan - Diagnosis (1) Pneumonia Qualifiers: Pneumonia type: due to unspecified organism Laterality: bilateral Lung location: unspecified part of lung Qualified Code(s): J18.9 - Pneumonia, unspecified organism Is this a current diagnosis for this admission?: Yes (2) Sepsis Qualifiers: Sepsis type: sepsis due to unspecified organism Qualified Code(s): A41.9 - Sepsis, unspecified organism Is this a current diagnosis for this admission?: Yes (3) End stage chronic kidney disease Is this a current diagnosis for this admission?: Yes (4) Diabetes mellitus Qualifiers: Diabetes mellitus type: type 2 Diabetes mellitus complication status: with hyperglycemia Diabetes mellitus group home insulin use: with termite technician use Qualified Code(s): E11.65 - Type 2 diabetes mellitus with hyperglycemia; Z79.4 - extermination inspector (current) use of insulin Is this a current diagnosis for this admission?: Yes (5) Hyperkalemia Is this a current diagnosis for this admission?: Yes (6) Acute hypoxemic respiratory failure Is this a current diagnosis for this admission?: YesPlan: Transfer to ICU with standby BiPAP
[2016-11-03] MEDS: CALCIUM CARBONATE 500 MG TAB.CHEW PO SCH (22:41)
[2016-11-03] MEDS: ATORVASTATIN CALCIUM 10 MG TABLET PO SCH (22:41)
[2016-11-03] MEDS: CLONIDINE HCL 0.1 MG TABLET PO SCH (22:41)
--- NOTE | 2016-11-03 23:43 | EKG REPORT ---
SEVERITY:- OTHERWISE NORMAL ECG - SINUS TACHYCARDIA : Confirmed by: Heather Madrid 03-Nov-2016 23:42:57
[2016-11-04] MEDS: HYDROCODONE/ACETAMINOPHEN 5-325 MG TABLET PO PRN (04:00)
[2016-11-04 05:08] LABS: ALANINE AMINOTRANSFERASE 48 U/L (21-72); ALKALINE PHOSPHATASE 72 U/L (38-126); ASPARTATE AMINO TRANSFERASE 60 U/L (17-59); BILIRUBIN,DIRECT 0.9 mg/dL (0.0-0.4); BILIRUBIN,TOTAL 0.9 mg/dL (0.2-1.3); BLOOD UREA NITROGEN 88 mg/dL (7-20); CALCIUM 7.2 mg/dL (8.4-10.2); CARBON DIOXIDE 21 mmol/L (22-30); CREATININE RESULT 11.31 mg/dL (0.52-1.25); GLUCOSE 176 mg/dL (75-110); POTASSIUM 4.3 mmol/L (3.6-5.0); TOTAL PROTEIN 6.1 g/dL (6.3-8.2)
[2016-11-04 05:19] LABS: CHLORIDE 94 mmol/L (98-107); SODIUM 134.8 mmol/L (137-145)
[2016-11-04 05:24] LABS: ANION GAP 20 (5-19)
[2016-11-04 05:40] LABS: HEMATOCRIT 28.6 % (37.9-51.0); HEMOGLOBIN 9.2 g/dL (13.5-17.0); MEAN CORPUSCULAR HEMOGLOBIN 30.3 pg (27.0-33.4); MEAN CORPUSCULAR HGB CONC 32.3 g/dL (32.0-36.0); RED BLOOD COUNT 3.05 10^6/uL (4.35-5.55); RED CELL DISTRIBUTION WIDTH 14.4 % (11.5-14.0); WHITE BLOOD COUNT 13.3 10^3/uL (4.0-10.5)
[2016-11-04 05:43] LABS: MEAN CORPUSCULAR VOLUME 94 fl (80-97)
[2016-11-04 05:56] LABS: BAND NEUTROPHILS % (MANUAL) 7 % (3-5); BASOPHILS % (MANUAL) 0 % (0-2); EOSINOPHILS % (MANUAL) 0 % (0-6); LYMPHOCYTES % (MANUAL) 4 % (13-45); TOTAL CELLS COUNTED 100
[2016-11-04 05:59] LABS: ANISOCYTOSIS SLIGHT; OVALOCYTES SLIGHT; POIKILOCYTOSIS 1+; TARGET CELLS 1+; TOXIC GRANULATION 1+; TOXIC VACUOLATION PRESENT
--- NOTE | 2016-11-04 07:07 | RADIOLOGY REPORT (SQ) ---
EXAM DESCRIPTION: CHEST SINGLE VIEW COMPLETED DATE/TIME: 11/04/2016 5:00 am REASON FOR STUDY: Decreased breath sounds; shortness of breath COMPARISON: 11/02/2016. CT, 11/02/2016. EXAM PARAMETERS: NUMBER OF VIEWS: One view. TECHNIQUE: Single frontal radiographic view of the chest acquired. RADIATION DOSE: NA LIMITATIONS: None. FINDINGS: LUNGS AND PLEURA: Moderate lung volumes. Moderate left basilar opacity. Moderate right m id hemithoracic and right basilar opacity -effusion. Moderate lung volumes. MEDIASTINUM AND HILAR STRUCTURES: No masses. Contour normal. HEART AND VASCULAR STRUCTURES: Moderate enlargement of the cardiac silhouette. BONES: No acute findings. HARDWARE: Right IJ central line tip at the cavoatrial junction. OTHER: No other significant finding. IMPRESSION: Multifocal airspace opacity involves bilateral lung bases and right upper lobe consisten t with CT, 2 days prior. TECHNICAL DOCUMENTATION: JOB ID: [id number]
[2016-11-04] MEDS ORDERED: PHENYLEPHRINE HCL INJ/PF 10 MG/1 ML SDV ONE (07:14)
[2016-11-04] MEDS ORDERED: DEXTROSE 5%-WATER 250 ML with PHENYLEPHRINE HCL 40 MG IV PRN ×2 (07:45)
[2016-11-04] MEDS ORDERED: PHENYLEPHRINE HCL INJ/PF 10 MG/1 ML SDV IV PRN (07:47)
[2016-11-04] MEDS: CALCIUM ACETATE 667 MG CAPSULE PO SCH ×2 (08:00→13:38)
[2016-11-04] MEDS ORDERED: FUROSEMIDE INJ/PF 40 MG/4 ML SDV IV ONE (08:00)
[2016-11-04] MEDS ORDERED: PROPOFOL 100 ML IV ONE (09:36)
[2016-11-04] MEDS ORDERED: FUROSEMIDE 80 MG TABLET PO SCH (10:00)
[2016-11-04] MEDS ORDERED: FOLIC ACID/VITAMIN B COMP W-C CAPSULE PO SCH (10:00)
--- NOTE | 2016-11-04 10:27 | PDOC TRANSFER SUMMARY ---
General Admission Date/PCP: 11/02/16 19:22 ALEA MCGRATH MD Transfer Date: 11/04/16 Accepting Facility: [facility] Resuscitation Status: Full Code - Transfer Diagnosis (1) Acute hypoxemic respiratory failure Is this a current diagnosis for this admission?: YesDiagnosis Summary: Status post intubated (2) Diabetes mellitus Is this a current diagnosis for this admission?: YesDiagnosis Summary: Continues a sliding scale (3) End stage chronic kidney disease Is this a current diagnosis for this admission?: YesDiagnosis Summary: Patient have a hemodialysis done yesterday but unable to do it fully because of the patient was hypotensive. Patient still fluid overload In patients need a dialysis and patient was transferred to the tertiary center for further evaluations (4) Hyperkalemia Is this a current diagnosis for this admission?: YesDiagnosis Summary: Patients noted hemodialysis (5) Hypertension Is this a current diagnosis for this admission?: YesDiagnosis Summary: Was running low but the patient on the carlos-drip (6) Pneumonia Is this a current diagnosis for this admission?: YesDiagnosis Summary: Continues to IV Rocephin and Levaquin and vancomycin (7) Sepsis Is this a current diagnosis for this admission?: YesDiagnosis Summary: Continues on MO IV antibiotic - Transfer Medications Home Medications: Aspirin [Aspirin 81 mg Chewable Tablet] 81 mg PO DAILY 11/02/16 Calcium Acetate 2,001 mg PO MEALS 11/02/16 Calcium Acetate 667 mg PO .WITH SNACKS 11/02/16 Calcium Carbonate [Tums Chewable 500 mg Tab.chew] 500 mg PO QHS 11/02/16 Clonidine HCl [Catapres 0.1 mg Tablet] 0.1 mg PO QHS 11/02/16 Furosemide [Lasix 80 mg Tablet] 80 mg PO SUTUTHSA@1000 11/02/16 Furosemide [Lasix] 40 mg PO MOWEFR@1000 11/02/16 Insulin Glargine,Hum.rec.anlog [Lantus Solostar] 18 unit SQ QHS 11/02/16 Insulin Lispro [Humalog Insulin 100 Unit/1 ml 3 ml Vial] 0 unit SUBCUT .SLD SCALE 11/02/16 Magnesium Oxide [Mag-Ox 400 mg Tablet] 400 mg PO DAILY 11/02/16 Pravastatin Sodium [Pravachol] 40 mg PO DAILY 11/02/16 Vit B Cmplx 3/FA/Vit C/Biotin [Nisha-John Rx Tablet] 1 tab PO DAILY 11/02/16 Transfer Medications: Current Medications Acetaminophen/Hydrocodone Bitart ([place] 5-325 Mg Tablet) 1 tab PO Q4HP PRN Stop: 11/09/16 19:20 Last Admin: 11/04/16 04:00 Dose: 1 tab Aspirin (Aspirin 81 Mg Chewable Tablet) 81 mg PO DAILY SUKHDEEP Stop: 12/03/16 09:59 Last Admin: 11/03/16 08:11 Dose: 81 mg Atorvastatin Calcium (Lipitor 10 Mg Tablet) 10 mg PO QHS SUKHDEEP Stop: 12/02/16 21:59 Last Admin: 11/03/16 22:41 Dose: Not Given Calcium Acetate (Phoslo 667 Mg Capsule) 667 mg PO .WITH SNACKS SUKHDEEP Stop: 12/02/16 19:29 Calcium Acetate (Phoslo 667 Mg Capsule) 2,001 mg PO MEALS [facility] Stop: 12/03/16 07:59 Last Admin: 11/03/16 18:02 Dose: Not Given Calcium Carbonate (Tums Chewable 500 Mg Tab.Chew) 500 mg PO QHS SUKHDEEP Stop: 12/02/16 21:59 Last Admin: 11/03/16 22:41 Dose: Not Given Clonidine (Catapres 0.1 Mg Tablet) 0.1 mg PO QHS [facility] Stop: 12/02/16 21:59 Last Admin: 11/03/16 22:41 Dose: Not Given Dextrose (Dextrose Inj 50% Syringe (25 Gm/50 Ml)) 12.5 gm IV PRN PRN; Protocol PRN Reason: FOR BG 50-69 IN ALERT PATIENT Stop: 12/03/16 08:14 Dextrose (Dextrose Inj 50% Syringe (25 Gm/50 Ml)) 25 gm IV PRN PRN PRN Reason: Protocol Stop: 12/03/16 08:14 Furosemide (Lasix 40 Mg Tablet) 40 mg PO MOWEFR@1000 [facility] Stop: 12/03/16 09:59 Last Admin: 11/03/16 13:28 Dose: Not Given Furosemide (Lasix 80 Mg Tablet) 80 mg PO SUTUTHSA@1000 [facility] Stop: 12/04/16 09:59 Glucagon (Glucagen Inj 1 Mg Vial) 1 mg IM PRN PRN; Protocol PRN Reason: EVALUATE FOR BG < 70 Stop: 12/03/16 08:14 Glucose (Glutose 40% Gel 15 Gm Tube) 15 gm PO PRN PRN; Protocol PRN Reason: FOR BG 50-69 IN ALERT PATIENT Stop: 12/03/16 08:14 Glucose (Glutose 40% Gel 15 Gm Tube) 30 gm PO PRN PRN; Protocol PRN Reason: FOR BG < 50 IN ALERT PATIENT Stop: 12/03/16 08:14 Ceftriaxone Sodium/Dextrose (Rocephin Rtu 1 Gm/D5w 50 Ml Premix) 1 gm in 50 mls @ 100 mls/hr IV QPM [facility] Stop: 11/10/16 17:59 Last Admin: 11/03/16 17:54 Dose: 50 ml Levofloxacin/Dextrose (Levaquin Rtu 250 Mg/D5w 50 Ml Premix) 250 mg in 50 mls @ 50 mls/hr IV Q2D@2200 [facility] Stop: 11/09/16 21:59 Last Admin: 11/03/16 22:53 Dose: 50 ml Vancomycin HCl 750 mg/ (Dextrose) 250 mls @ 166.667 mls/hr IV PDIA [facility] Stop: 11/10/16 17:59 Last Admin: 11/03/16 18:01 Dose: 750 mg Hard Fat/Phenylephrine 40 mg/ (Dextrose) 250 mls @ 0 mls/hr IV CONTINUOUS PRN; Protocol; Titrate PRN Reason: THIS MED IS NOT "PRN" Stop: 12/04/16 07:44 Last Admin: 11/04/16 07:23 Dose: 40 mg Insulin Glargine (Lantus Insulin Inj 300 Unit/3 Ml Pen) 18 unit SUBCUT QHS [facility] Stop: 12/02/16 21:59 Last Admin: 11/03/16 22:44 Dose: 18 unit Insulin Human Lispro (Humalog Insulin 100 Unit/1 Ml 3 Ml Vial) 0 - 12 unit SUBCUT ACHSP PRN PRN Reason: Protocol Stop: 12/03/16 08:14 Last Admin: 11/03/16 22:46 Dose: 4 unit Magnesium Oxide (Mag-Ox 400 Mg Tablet) 400 mg PO DAILY [facility] Stop: 12/03/16 09:59 Last Admin: 11/03/16 08:11 Dose: 400 mg Multivit/Ca Carb/B Cmplx/FA/Prenat (Nephrocaps Multiple Vitamin Capsule) 1 cap PO DAILY [facility] Stop: 12/04/16 09:59 Sodium Chloride (Saline Flush 2.5 Ml Monoject Prefil Syrin) 2.5 ml IV Q8 [facility] Stop: 12/02/16 21:59 Last Admin: 11/04/16 05:35 Dose: Not Given - Allergies Allergies/Adverse Reactions: No Known Allergies Allergy (Unverified 10/24/10 17:46) Hospital Course Hospital Course: This is a 61-year-old male with a patient of Dr. Mcgrath with a significant history of the end-stage renal disease on hemodialysis and history of the type 2 diabetes mellitus with the multiple complications including the peripheral vascular disease status post amputations and a history of hypertension's hyperlipidemia went to Dr. Mcgrath's office with a complaint of fever and shortness of the breath. Patient was admitted directly from his office to the hospital patient have a CT of the chest done with so some bilateral pneumonia and also CT abdomen and pelvis was done was nothing acute finding Patient was at this point Dr. Finch was consulted for the hemodialysis and yesterday the patient's was dry but unable to do the complete hemodialysis and at this point so patient was running low blood pressures. Patient was transferred to the ICU last night and patient's was breathing 28-32 and at this point patient was put on the BiPAP and I saw the patient in the morning Patient still on the BiPAP still breathing 28-32 range and the patient is at this point unable to get any ABG. Dr. Cordova was consulted and suggest the patient was intubated and suggested transfer the patient's to the tertiary center for the hemodialysis. At this point discussed with the patient and the family and proceed for the intubations and discussed with the skein yarn dyer helper to the and suggest to get the ABG patient how already have a central line Placement patient's currently on a broad-spectrum IV IV antibiotic Physical Exam Vital Signs: Temp Pulse Resp BP Pulse Ox 100.2 F 105 H 27 H 103/62 98 11/04/16 04:00 11/04/16 07:52 11/04/16 07:39 11/04/16 07:39 11/04/16 07:39 Intake & Output 11/03/16 11/04/16 11/05/16 06:59 06:59 06:59 Intake Total 1099 1097 Output Total 0 0 Balance 1099 1097 Weight 144.7 kg 147.7 kg Exam: Before intubations patient was alert awake and talking Head exam: PRESENT: normocephalic Eye exam: PRESENT: PERRLA Respiratory exam: PRESENT: decreased breath sounds Cardiovascular exam: PRESENT: +S1, +S2 GI/Abdominal exam: PRESENT: normal bowel sounds, soft Extremities exam: PRESENT: other - Bilateral amputations Musculoskeletal exam: PRESENT: deformity Neurological exam: PRESENT: alert, awake Psychiatric exam: PRESENT: anxious Skin exam: PRESENT: dry Results Laboratory Results: 11/04/16 04:20 11/04/16 04:20 11/03/16 11/04/16 11/04/16 20:29 04:20 04:20 WBC 13.3 H RBC 3.05 L Hgb 9.2 L Hct 28.6 L MCV 94 D MCH 30.3 MCHC 32.3 RDW 14.4 H Plt Count 175 Seg Neutrophils % Not Reportable Lymphocytes % Not Reportable Monocytes % Not Reportable Eosinophils % Not Reportable Basophils % Not Reportable Absolute Neutrophils Not Reportable Absolute Lymphocytes Not Reportable Absolute Monocytes Not Reportable Absolute Eosinophils Not Reportable Absolute Basophils Not Reportable Carbonic Acid 1.34 HCO3/H2CO3 Ratio 17:1 ABG pH 7.35 ABG pCO2 44.4 ABG pO2 77.5 L ABG HCO3 24.0 ABG O2 Saturation 94.8 ABG Base Excess -1.7 FiO2 5L Sodium 134.8 L Potassium 4.3 Chloride 94 L Carbon Dioxide 21 L Anion Gap 20 H BUN 88 H Creatinine 11.31 H Est GFR ( Amer) 6 L Est GFR (Non-Af Amer) 5 L Glucose 176 H Calcium 7.2 L Total Bilirubin 0.9 AST 60 H ALT 48 Alkaline Phosphatase 72 Total Protein 6.1 L Albumin 3.0 L Impressions: Abdomen/Pelvis CT 11/02/16 00:00 IMPRESSION: No CT findings to explain history of abdominal pain Incidental finding of a benign left adrenal adenoma Incidental finding of bilateral lower lobe pleural-based areas consolidation most likely rounded atelectasis. Malignancy could not entirely be excluded. Please consider a non contrasted CT chest for further evaluation Chest CT 11/02/16 00:00 IMPRESSION: 1. There is opacity in the right upper lobe. This could represent a localized area of consolidation. A nodule cannot be ruled out. 2. There are opacities in the medial aspect of each lower lobe suggestive of areas of consolidation. 3. There is a 33 mm left adrenal nodule. 4. There is peripheral 9 mm nodule in the right lung on image 27. Chest X-Ray 11/04/16 06:00 IMPRESSION: Multifocal airspace opacity involves bilateral lung bases and right upper lobe consistent with CT, 2 days prior. Plan Time Spent: Greater than 30 Minutes - Patient was at this point intubated and patients need a hemodialysis in the in the hospital there is no hemodialysis available and no nephrology available in the patient's at this point transfer to [facility] for the further evaluations
[2016-11-04 11:28] LABS: AMORPHOUS SEDIMENT,URINE TRACE /HPF; APPEARANCE,URINE CLOUDY; BILIRUBIN,URINE NEGATIVE (NEGATIVE); GLUCOSE, URINE >=500 mg/dL (NEGATIVE); KETONES,URINE NEGATIVE (NEGATIVE); LEUKOCYTE ESTERASE,URINE SMALL (NEGATIVE); NITRITE,URINE NEGATIVE (NEGATIVE); PROTEIN,URINE >=500 mg/dL (NEGATIVE); UROBILINOGEN,URINE NEGATIVE mg/dL (<2.0)
--- NOTE | 2016-11-04 11:49 | RADIOLOGY REPORT (SQ) ---
EXAM DESCRIPTION: CHEST SINGLE VIEW COMPLETED DATE/TIME: 11/04/2016 11:29 am REASON FOR STUDY: ETT placement COMPARISON: CT chest 11/02/2016 Chest films 11/04/2016, 11/02/2016, 08/16/2012 EXAM PARAMETERS: NUMBER OF VIEWS: One view. TECHNIQUE: Single frontal radiographic view of the chest acquired. RADIATION DOSE: NA LIMITATIONS: None. FINDINGS: LUNGS AND PLEURA: Consolidation in the right upper lobe and both lung bases is stable. No gross pleural effusions or pneumothorax. MEDIASTINUM AND HILAR STRUCTURES: No masses. Contour normal. HEART AND VASCULAR STRUCTURES: Stable moderate cardiomegaly BONES: No acute findings. HARDWARE: Right jugular central line tip in the superior vena cava. Endotracheal tube tip 5 cm above the corinne. Nasogastric tube tip and side port in the stomach. OTHER: No other significant finding. IMPRESSION: Tubes and lines in good positioning Unchanged masses versus infiltrates in the right upper lobe and both lung bases. TECHNICAL DOCUMENTATION: JOB ID: [id number]
--- NOTE | 2016-11-04 11:50 | RADIOLOGY REPORT (SQ) ---
EXAM DESCRIPTION: KUB/ABDOMEN (SINGLE VIEW) COMPLETED DATE/TIME: 11/04/2016 11:29 am REASON FOR STUDY: intubation, NGT placement COMPARISON: AP chest same date TECHNIQUE: AP portable film of the upper abdomen to document nasogastric tube positioning LIMITATIONS: Incomplete evaluation of the abdomen FINDINGS: AP portable film over the lung bases and upper abdomen demonstrate a nasogastric tube with the tip and side port in the stomach. Stomach is decompressed. Unchanged bibasilar airspace disease Few borderline dilated air-filled small bowel loops in the mid epigastrium IMPRESSION: Nasogastric tube tip and side port in the stomach TECHNICAL DOCUMENTATION: JOB ID: [id number] [employer]- All Rights Reserved
[2016-11-04 11:53] LABS: ARTERIAL BLOOD BASE EXCESS -1.1 mmol/L; ARTERIAL BLOOD O2 SATURATION 97.4 % (94-98)
[2016-11-04] MEDS ORDERED: PROPOFOL 200 ML IV ONE (12:20)
[2016-11-04] MEDS ORDERED: PROPOFOL 100 ML IV PRN (12:33)
[2016-11-04 13:13] VITALS: BP 116/61
--- NOTE | 2016-11-04 13:35 | PDOC CONSULTATION ---
Consultation Consult Date: 11/04/16 Attending physician:: ALEA MCGRATH Consult reason:: pna resp failure History of Present Illness Admission Date/PCP: 11/02/16 19:22 ALEA MCGRATH MD History of Present Illness: SCARLET ALMONTE JR is a 61 year old male, With a history of diabetes mellitus hypertension, peripheral vascular disease, end-stage renal disease due to diabetic nephropathy on maintenance hemodialysis Was admitted for evaluation of chest pain, shortness of breath and fever. He has been diagnosed to have pneumonia on CT scan of the chest. He has been begun on antibiotics. CT Chest without contrast was done, showed 30 by 20 mm opacity in the right upper lobe. There are bilateral focal opacity in the medial aspect of each lung base, CT scan of the abdomen was done because of abdominal pain, but was negative. Blood sugars have been high and he has had acidosis suggestive of possible diabetic ketoacidosis and is being managed by Dr. Mcgrath.His potassium was also found to be high and was treated last night and earlier today with Kayexalate. He has been having runs since then. On the whole he feels better today with chest pains though pleuritic and dyspnea is better.He was put on dialysis but could not stay comfortable after approximately an hour because of his position and because of diarrhea and therefore dialysis had to be terminated. Patient now in ICU tachypnic with bilateral pneumonia,sepsis requiring a vasopressor and volume overload ;unable to get HD at this time,discussed with patient,his family and Dr Jay Jay flowers to intubate before total respiratory failure and transfer to facility where he can receive HD Past Medical History Cardiac Medical History: Denies: Coronary Artery Disease, Myocardial Infarction, Hypertension Pulmonary Medical History: Denies: Asthma, Bronchitis, Chronic Obstructive Pulmonary Disease (COPD), Pneumonia, Tuberculosis Neurological Medical History: Denies: Seizures Endocrine Medical History: Reports: Diabetes Mellitus Type 2, Obesity Denies: Hyperthyroidism, Hypothyroidism Renal/ Medical History: Reports: End Stage Renal Disease GI Medical History: Denies: Hepatitis, Hiatal Hernia Musculoskeltal Medical History: Reports: Arthritis Hematology: Denies: Anemia, Sickle Cell Disease Infectious Medical History: Reports: Other - Peripheral vascular disease with status post bilateral amputation Past Surgical History Past Surgical History: Reports: Orthopedic Surgery - 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12 , Vascular Surgery - fistula Denies: Appendectomy, Cholecystectomy, Coronary Artery Bypass Graft, Gastric Bypass Surgery, Herniorrhaphy, Pacemaker, Tonsillectomy Social History Information Source: Patient, [facility] Records Lives with: Family Smoking Status: Never Smoker Frequency of Alcohol Use: None Hx Recreational Drug Use: No Drugs: None Hx Prescription Drug Abuse: No Family History Parental Family History Reviewed: No Children Family History Reviewed: No Sibling(s) Family History Reviewed.: No Medication/Allergy Home Medications: Aspirin [Aspirin 81 mg Chewable Tablet] 81 mg PO DAILY 11/02/16 Calcium Acetate 2,001 mg PO MEALS 11/02/16 Calcium Acetate 667 mg PO .WITH SNACKS 11/02/16 Calcium Carbonate [Tums Chewable 500 mg Tab.chew] 500 mg PO QHS 11/02/16 Clonidine HCl [Catapres 0.1 mg Tablet] 0.1 mg PO QHS 11/02/16 Furosemide [Lasix 80 mg Tablet] 80 mg PO SUTUTHSA@1000 11/02/16 Furosemide [Lasix] 40 mg PO MOWEFR@1000 11/02/16 Insulin Glargine,Hum.rec.anlog [Lantus Solostar] 18 unit SQ QHS 11/02/16 Insulin Lispro [Humalog Insulin 100 Unit/1 ml 3 ml Vial] 0 unit SUBCUT .SLD SCALE 11/02/16 Magnesium Oxide [Mag-Ox 400 mg Tablet] 400 mg PO DAILY 11/02/16 Pravastatin Sodium [Pravachol] 40 mg PO DAILY 11/02/16 Vit B Cmplx 3/FA/Vit C/Biotin [Nisha-John Rx Tablet] 1 tab PO DAILY 11/02/16 Allergies/Adverse Reactions: No Known Allergies Allergy (Unverified 10/24/10 17:46) Review of Systems ROS unobtainable: Due to mental status Physical Exam Vital Signs: Temp Pulse Resp BP Pulse Ox 100.2 F 105 H 27 H 103/62 98 11/04/16 04:00 11/04/16 07:52 11/04/16 07:39 11/04/16 07:39 11/04/16 07:39 Intake & Output 11/03/16 11/04/16 11/05/16 06:59 06:59 06:59 Intake Total 1099 1097 Output Total 0 0 Balance 1099 1097 Weight 144.7 kg 147.7 kg General appearance: PRESENT: disheveled, mild distress, morbidly obese Head exam: PRESENT: atraumatic, normocephalic Eye exam: PRESENT: conjunctiva pale, EOMI Mouth exam: PRESENT: dry mucosa, neck supple Neck exam: ABSENT: carotid bruit, JVD, lymphadenopathy, thyromegaly Cardiovascular exam: PRESENT: RRR, +S1, +S2 GI/Abdominal exam: PRESENT: normal bowel sounds, soft. ABSENT: distended, guarding, mass, organolmegaly, rebound, tenderness Rectal exam: PRESENT: deferred Extremities exam: PRESENT: other - bilateral bka Neurological exam: PRESENT: awake Psychiatric exam: PRESENT: normal mood Skin exam: PRESENT: dry, warm Results Laboratory Results: 11/04/16 04:20 11/04/16 04:20 11/03/16 11/03/16 11/04/16 05:15 20:29 04:20 WBC 13.3 H RBC 3.05 L Hgb 9.2 L Hct 28.6 L MCV 94 D MCH 30.3 MCHC 32.3 RDW 14.4 H Plt Count 175 Seg Neutrophils % Not Reportable Lymphocytes % Not Reportable Monocytes % Not Reportable Eosinophils % Not Reportable Basophils % Not Reportable Absolute Neutrophils Not Reportable Absolute Lymphocytes Not Reportable Absolute Monocytes Not Reportable Absolute Eosinophils Not Reportable Absolute Basophils Not Reportable Carbonic Acid 1.34 HCO3/H2CO3 Ratio 17:1 ABG pH 7.35 ABG pCO2 44.4 ABG pO2 77.5 L ABG HCO3 24.0 ABG O2 Saturation 94.8 ABG Base Excess -1.7 FiO2 5L Sodium 137.2 Potassium 4.7 D Chloride 95 L Carbon Dioxide 13 L Anion Gap 29 H BUN 85 H Creatinine 12.16 H Est GFR ( Amer) 5 L Est GFR (Non-Af Amer) 4 L Glucose 640 H* Calcium 8.1 L Total Bilirubin 0.6 AST 58 ALT 51 Alkaline Phosphatase 69 Total Protein 6.6 Albumin 3.3 L 11/04/16 04:20 WBC RBC Hgb Hct MCV MCH MCHC RDW Plt Count Seg Neutrophils % Lymphocytes % Monocytes % Eosinophils % Basophils % Absolute Neutrophils Absolute Lymphocytes Absolute Monocytes Absolute Eosinophils Absolute Basophils Carbonic Acid HCO3/H2CO3 Ratio ABG pH ABG pCO2 ABG pO2 ABG HCO3 ABG O2 Saturation ABG Base Excess FiO2 Sodium 134.8 L Potassium 4.3 Chloride 94 L Carbon Dioxide 21 L Anion Gap 20 H BUN 88 H Creatinine 11.31 H Est GFR ( Amer) 6 L Est GFR (Non-Af Amer) 5 L Glucose 176 H Calcium 7.2 L Total Bilirubin 0.9 AST 60 H ALT 48 Alkaline Phosphatase 72 Total Protein 6.1 L Albumin 3.0 L Impressions: Abdomen/Pelvis CT 11/02/16 00:00 IMPRESSION: No CT findings to explain history of abdominal pain Incidental finding of a benign left adrenal adenoma Incidental finding of bilateral lower lobe pleural-based areas consolidation most likely rounded atelectasis. Malignancy could not entirely be excluded. Please consider a non contrasted CT chest for further evaluation Chest CT 11/02/16 00:00 IMPRESSION: 1. There is opacity in the right upper lobe. This could represent a localized area of consolidation. A nodule cannot be ruled out. 2. There are opacities in the medial aspect of each lower lobe suggestive of areas of consolidation. 3. There is a 33 mm left adrenal nodule. 4. There is peripheral 9 mm nodule in the right lung on image 27. Chest X-Ray 11/04/16 06:00 IMPRESSION: Multifocal airspace opacity involves bilateral lung bases and right upper lobe consistent with CT, 2 days prior. Assessment & Plan - Diagnosis (1) Acute hypoxemic respiratory failure Is this a current diagnosis for this admission?: YesPlan: requiring fio2 .5 (2) End stage chronic kidney disease Is this a current diagnosis for this admission?: YesPlan: creatnine 11 (3) Pneumonia Qualifiers: Pneumonia type: due to unspecified organism Laterality: bilateral Lung location: unspecified part of lung Qualified Code(s): J18.9 - Pneumonia, unspecified organism Is this a current diagnosis for this admission?: Yes (4) Sepsis Qualifiers: Sepsis type: sepsis due to unspecified organism Qualified Code(s): A41.9 - Sepsis, unspecified organism Is this a current diagnosis for this admission?: YesPlan: blood cultures x 2 gpc - Time Critical Time spent with patient: 35 or more minutes - 70 min discusse with RN patient patient family Dr Goyal
[2016-11-04] MEDS: MAGNESIUM OXIDE 400 MG TABLET PO SCH (13:38)
[2016-11-04] MEDS: ASPIRIN 81 MG TABLET, CHEWABLE PO SCH (13:38)
== END 2016-11-04 13:10 | disposition short-term general hospital (02) | DRG 871 ==
LOC: 3W 12:49 → UNDOADMIN 12:49 → 3W 19:22 → ICU 11-03 21:48
PROVIDERS: ADMIT Internal Medicine; ATTEND Internal Medicine
PROC: 02HV33Z Insertion of Infusion Device into Superior Vena Cava, Percutaneous Approach (ICD-10-PCS; 2016-11-02)
PROC: B548ZZA Ultrasonography of Superior Vena Cava, Guidance (ICD-10-PCS; 2016-11-02)
PROC: 5A1935Z Respiratory Ventilation, Less than 24 Consecutive Hours (ICD-10-PCS; principal; 2016-11-04)
PROC: 0BH17EZ Insertion of Endotracheal Airway into Trachea, Via Natural or Artificial Opening (ICD-10-PCS; 2016-11-04)
DX: A41.9 Sepsis, unspecified organism (principal); J18.9 Pneumonia, unspecified organism; J96.01 Acute respiratory failure with hypoxia; N18.6 End stage renal disease; I12.0 Hypertensive chronic kidney disease with stage 5 chronic kidney disease or end stage renal disease; Z68.42 Body mass index [BMI] 45.0-49.9, adult; E11.22 Type 2 diabetes mellitus with diabetic chronic kidney disease; E11.65 Type 2 diabetes mellitus with hyperglycemia; E87.5 Hyperkalemia; E78.5 Hyperlipidemia, unspecified; I73.9 Peripheral vascular disease, unspecified; Z79.899 Other long term (current) drug therapy; Z99.2 Dependence on renal dialysis; M19.90 Unspecified osteoarthritis, unspecified site; E66.9 Obesity, unspecified; Z89.512 Acquired absence of left leg below knee; Z89.511 Acquired absence of right leg below knee
CPT/HCPCS: 31500; 36415; 36600; 71010; 71250; 74000; 74176; 80048; 80053; 80076; 81001; 82803; 82962; 83036; 85025; 87040; 87077; 87086; 87186; 93005; 93010; 94002; 94660; J0696; J1815; J1956; J2370; J2704; J3370; J3490; J7060